=== PATIENT | male | born 1990 | race Caucasian/White ===

== ENCOUNTER 2017-11-30 21:25 | Emergency (ER) | payer MEDICAID ==
[~2017-11-30 21:25] MED LIST: METH4TAB81 PO; NO HOME MEDS; OMEP40CA37 PO; PHEN30SP9 PO
== END 2017-12-01 00:51 | disposition left against medical advice (07) ==
LOC: ER 21:28
DX: M25.519 Pain in unspecified shoulder (principal); Z53.21 Procedure and treatment not carried out due to patient leaving prior to being seen by health care provider

== ENCOUNTER 2017-12-01 01:11 | Emergency (ER) | payer MEDICAID ==
[~2017-12-01] VITALS: Ht 175.3 cm; Wt 86.5 kg
[2017-12-01 01:21] VITALS: BP 139/81
== END 2017-12-01 02:17 | disposition home or self-care (01) ==
LOC: ER 01:12
DX: M25.512 Pain in left shoulder (principal); G89.29 Other chronic pain; Z79.899 Other long term (current) drug therapy
CPT/HCPCS: 99281

== ENCOUNTER 2018-04-02 20:56 | Emergency (ER) | payer MEDICAID ==
[~2018-04-02] VITALS: Ht 175.3 cm; Wt 85.0 kg
[2018-04-02 21:03] VITALS: BP 148/89
== END 2018-04-02 22:00 | disposition home or self-care (01) ==
LOC: ER 20:57
DX: R42 Dizziness and giddiness (principal); G89.29 Other chronic pain; F17.200 Nicotine dependence, unspecified, uncomplicated; Z98.890 Other specified postprocedural states; Z79.899 Other long term (current) drug therapy
CPT/HCPCS: 99284

== ENCOUNTER 2018-04-22 01:37 | Emergency (ER) | payer MEDICAID ==
[~2018-04-22] VITALS: Ht 175.3 cm; Wt 75.2 kg
[2018-04-22] MEDS ORDERED: iohexol 350MG/ML 100ml bottle IV ONE (02:13)
[2018-04-22 03:44] VITALS: BP 127/73
== END 2018-04-22 03:58 | disposition home or self-care (01) ==
LOC: ER 01:37
DX: M54.2 Cervicalgia (principal); G89.29 Other chronic pain; Z98.890 Other specified postprocedural states; Z79.899 Other long term (current) drug therapy; Y04.0XXA Assault by unarmed brawl or fight, initial encounter; Y93.89 Activity, other specified; Y92.89 Other specified places as the place of occurrence of the external cause; Y99.9 Unspecified external cause status
CPT/HCPCS: 70491; 99284; J7030; Q9967

== ENCOUNTER 2021-07-09 15:54 | Emergency (ER) | payer MEDICAID ==
[~2021-07-09] VITALS: Ht 175.3 cm; Wt 83.2 kg
[~2021-07-09 15:54] MED LIST changes: +OMEP40CA21 PO; -OMEP40CA37 PO
[2021-07-09 16:12] VITALS: BP 114/72
== END 2021-07-09 21:30 | disposition left against medical advice (07) ==
LOC: ER 15:55
DX: R07.89 Other chest pain (principal); G89.29 Other chronic pain; Z79.899 Other long term (current) drug therapy
CPT/HCPCS: 71045; 99283

== ENCOUNTER 2022-03-11 09:35 | Emergency (ER) | payer MEDICAID ==
[~2022-03-11] VITALS: Ht 175.3 cm; Wt 95.0 kg
[~2022-03-11 09:35] MED LIST changes: +IBUP-1986 PO; +PSEU120T55 PO
[2022-03-11 09:47] VITALS: BP 120/71
[2022-03-11 11:05] LABS: BASOPHILS % (AUTO) 0.4 % (0-1); EOSINOPHILS # (AUTO) 0.2 X10'3 (0-0.9); EOSINOPHILS % (AUTO) 3.1 % (0-6); HEMOGLOBIN 15.4 g/dl (14.0-17.9); LYMPHOCYTES # (AUTO) 1.8 X10'3 (1.1-4.8); LYMPHOCYTES % (AUTO) 33.5 % (21-51); MEAN CORPUSCULAR HEMOGLOBIN 31.8 PG (27.0-31.0); MEAN CORPUSCULAR HGB CONC 34.2 g/dL (33.0-36.5); MEAN PLATELET VOLUME 8.2 FL (7.4-10.4); MONOCYTES # (AUTO) 0.5 X10'3 (0-0.9); MONOCYTES % (AUTO) 9.1 % (2-12); NEUTROPHILS # (AUTO) 2.8 X10'3 (1.8-7.7); NEUTROPHILS % (AUTO) 53.9 % (42-75); PLATELET COUNT 264 X10'3 (140-440); RED BLOOD COUNT 4.84 X10'6 (4.70-6.10); RED CELL DISTRIBUTION WIDTH 13.5 % (11.5-14.5); WHITE BLOOD COUNT 5.2 X10'3 (4.5-11.0)
[2022-03-11 11:22] LABS: ALANINE AMINOTRANSFERASE 28 U/L (12-78); ALBUMIN/GLOBULIN RATIO 1.1 (1.1-1.5); ALKALINE PHOSPHATASE 65 IU/L (46-116); AMYLASE 47 U/L (25-115); ANION GAP 8 (8-16); ASPARTATE AMINO TRANSFERASE 23 U/L (10-37); BILIRUBIN,TOTAL 0.3 MG/DL (0.1-1.0); BLOOD UREA NITROGEN 12 MG/DL (7-18); BUN/CREATININE RATIO 16.4 (5.4-32.0); CALCIUM 8.7 MG/DL (8.5-10.1); CHLORIDE 105 MMOL/L (99-107); CREATININE 0.73 MG/DL (0.60-1.10); GLUCOSE 92 MG/DL (70-104); LIPASE 91 U/L (73-393); POTASSIUM 4.4 MMOL/L (3.5-5.1); SODIUM 139 MMOL/L (135-145); TOTAL CARBON DIOXIDE 26.4 MMOL/L (24-32); TOTAL PROTEIN 7.6 G/DL (6.4-8.2); eGFR > 90 ML/MIN
--- NOTE | 2022-03-11 12:24 | NUR ---
Attempted to call patient back to a room, Patient was not in lobby x3 called. Called patient at listed number at which he states that "I got tired of waiting". I notified patient that if he still needed care that he could come in and be seen at any point. Patient verbalized understanding.
== END 2022-03-11 12:25 | disposition left against medical advice (07) ==
LOC: ER 09:35
DX: K92.0 Hematemesis (principal); Z53.21 Procedure and treatment not carried out due to patient leaving prior to being seen by health care provider
CPT/HCPCS: 36415; 80053; 82150; 83690; 85025

== ENCOUNTER 2022-06-14 04:23 | Emergency (ER) | payer MEDICAID ==
[~2022-06-14] VITALS: Ht 175.3 cm; Wt 81.8 kg
[2022-06-14] MEDS ORDERED: ketamine 50 mg/ml 10ml vial IM ONE (05:40)
[2022-06-14] MEDS ORDERED: naproxen 500mg tablet PO ONE (05:40)
[2022-06-14] MEDS ORDERED: HYDROcodone/acetaminophen 10/325mg tab PO ONE (05:40)
[2022-06-14] MEDS ORDERED: LIDOcaine 1% w/EPI 1:100,000 30ml vial (MDV) IJ ONE (06:30)
[2022-06-14] MEDS ORDERED: HYDR-3965 PO ×3 (08:05→08:17)
[2022-06-14 08:41] VITALS: BP 131/80
== END 2022-06-14 08:44 | disposition home or self-care (01) ==
LOC: ER 04:23
DX: S62.396A Other fracture of fifth metacarpal bone, right hand, initial encounter for closed fracture (principal); S63.064A Dislocation of metacarpal (bone), proximal end of right hand, initial encounter; G89.29 Other chronic pain; F17.200 Nicotine dependence, unspecified, uncomplicated; Z98.890 Other specified postprocedural states; Z79.899 Other long term (current) drug therapy; W22.8XXA Striking against or struck by other objects, initial encounter; Y93.89 Activity, other specified; Y92.89 Other specified places as the place of occurrence of the external cause; Y99.8 Other external cause status
CPT/HCPCS: 26605; 73110; 73130; 99284; A6449

== ENCOUNTER 2022-06-22 10:50 | Day surgery (SDC) | payer MEDICAID ==
[2022-06-18 15:10] LABS: BASOPHILS % (AUTO) 0.5 % (0-1); EOSINOPHILS # (AUTO) 0.1 X10'3 (0-0.9); LYMPHOCYTES # (AUTO) 1.8 X10'3 (1.1-4.8); LYMPHOCYTES % (AUTO) 28.6 % (21-51); MEAN CORPUSCULAR HEMOGLOBIN 31.5 PG (27.0-31.0); MEAN CORPUSCULAR HGB CONC 34.3 g/dL (33.0-36.5); MEAN PLATELET VOLUME 7.9 FL (7.4-10.4); MONOCYTES # (AUTO) 0.5 X10'3 (0-0.9); MONOCYTES % (AUTO) 7.9 % (2-12); NEUTROPHILS # (AUTO) 3.9 X10'3 (1.8-7.7); PRE OP HEMATOCRIT 43.5 % (42.0-52.0); PRE OP HEMOGLOBIN 14.9 g/dL (14.0-17.9); PRE OP PLATELET COUNT 279 X10'3 (140-440); RED BLOOD COUNT 4.73 X10'6 (4.70-6.10); RED CELL DISTRIBUTION WIDTH 12.6 % (11.5-14.5)
[2022-06-18 15:18] LABS: ALBUMIN 3.8 G/DL (3.4-5.0); ALBUMIN/GLOBULIN RATIO 1.2 (1.1-1.5); ALKALINE PHOSPHATASE 73 IU/L (46-116); BLOOD UREA NITROGEN 15 MG/DL (7-18); BUN/CREATININE RATIO 16.9 (5.4-32.0); CALCIUM 9.1 MG/DL (8.5-10.1); CHLORIDE 105 MMOL/L (99-107); CREATININE 0.89 MG/DL (0.60-1.10); PRE OP ALT 25 U/L (30-65); PRE OP ANION GAP 7 (8-16); PRE OP AST 15 U/L (10-37); PRE OP BILIRUB, TOTAL 0.4 MG/DL (0.0-1.0); PRE OP GLUCOSE 126 MG/DL (70-104); PRE OP POTASSIUM 3.9 MMOL/L (3.4-5.1); PRE OP SODIUM 139 MMOL/L (135-145); TOTAL CARBON DIOXIDE 26.7 MMOL/L (24-32); eGFR > 90 ML/MIN
[~2022-06-22] VITALS: Ht 175.3 cm; Wt 90.5 kg
[~2022-06-22 10:50] MED LIST changes: +BUPIVAcaine/PF 2.5 mg/ml (0.25%) 30ml vial ONE; +HYDR-3964 PO; -IBUP-1986 PO; -METH4TAB81 PO; -NO HOME MEDS; -OMEP40CA21 PO; -PHEN30SP9 PO; -PSEU120T55 PO; +ceFAZolin inj. 2,000 MG in dextrose 5%-water 100 ML IV ONE; +famotidine 20mg tablet PO ONE; +ringers solution, lacted 1,000 ML IV SCH
[2022-06-22 11:00] VITALS: BP 115/53
[2022-06-22] MEDS ORDERED: proCHLORperazine 10 MG/2 ml inj IV PRN (11:45)
[2022-06-22] MEDS ORDERED: morphine 2 MG/ML inj. syringe IV PRN (11:45)
[2022-06-22] MEDS ORDERED: morphine 4 MG/ML inj SYRINge IV PRN (11:45)
[2022-06-22] MEDS ORDERED: ringers solution, lacted 1,000 ML IV SCH (11:45)
[2022-06-22] MEDS ORDERED: meperidine/PF 25mg/ml syringe IV PRN ×3 (11:45)
[2022-06-22] MEDS ORDERED: ondansetron/PF 4mg/2ml inj IV PRN (11:45)
[2022-06-22] MEDS ORDERED: sevoflurane 250ml liquid IH ONE (12:18)
[2022-06-22] MEDS ORDERED: fentaNYL/PF 50MCG/1 ML 2ML syringe ONE (12:19)
[2022-06-22] MEDS ORDERED: propofol inj 20 ML IV ONE (12:19)
[2022-06-22] MEDS ORDERED: midazolam 1 mg/ML 2ml injection ONE (12:19)
[2022-06-22 13:05] VITALS: BP 110/70
--- NOTE | 2022-06-22 13:05 | NUR ---
PT ARRIVED TO RR VIA GURNEY, PT WITH LMA STILL IN PLACE, VSS, RIGHT HAND WRAPPED-FINGERS PINK, WARM, NO SN/SX OF PAIN, DRSG-CDI
[2022-06-22 13:10] VITALS: BP 113/72
[2022-06-22 13:20] VITALS: BP 115/68
[2022-06-22 13:30] VITALS: BP 118/74
--- NOTE | 2022-06-22 13:35 | NUR ---
PT EAGER TO LEAVE, GETTING DRESSED, GIVEN PAIN PILL-HAND 3/10 ACHE, DRSG-CDI, FINGERS PINK WARM, ABLE TO MOVE, VSS, PIV'S D/CD-CANULA INTACT, D/C INSTRUCTIONS GIVEN TO PT-ALL QUESTIONS ANSWERED, PT TAKEN WITH ALL BELONGINGS VIA W/C TO VEHICLE FOR TRANSPORT HOME.
[2022-06-22] MEDS ORDERED: HYDROcodone/acetaminophen 5mg/325mg tablet PO ONE (13:45)
== END 2022-06-22 13:35 | disposition home or self-care (01) ==
LOC: PAS 10:50
PROVIDERS: ATTEND Orthopaedic Surgery Hand Surgery
DX: S62.141A Displaced fracture of body of hamate [unciform] bone, right wrist, initial encounter for closed fracture (principal); F17.210 Nicotine dependence, cigarettes, uncomplicated; X58.XXXA Exposure to other specified factors, initial encounter; Y93.89 Activity, other specified; Y92.89 Other specified places as the place of occurrence of the external cause; Y99.8 Other external cause status; Z79.899 Other long term (current) drug therapy; Z98.890 Other specified postprocedural states
CPT/HCPCS: 25635; 36415; 80053; 82948; 85025; A6222; C1713; J0690; J2250; J2270; J2704; J3010; J3490; J7030; J7060; J7120; Z7506; Z7512; A4215; A4618; A6449; A7000

== ENCOUNTER 2022-12-07 08:32 | Emergency (ER) | payer MEDICAID ==
[~2022-12-07] VITALS: Ht 175.3 cm; Wt 90.9 kg
[~2022-12-07 08:32] MED LIST changes: -BUPIVAcaine/PF 2.5 mg/ml (0.25%) 30ml vial ONE; -ceFAZolin inj. 2,000 MG in dextrose 5%-water 100 ML IV ONE; -famotidine 20mg tablet PO ONE; -ringers solution, lacted 1,000 ML IV SCH
[2022-12-07 08:53] VITALS: BP 133/81
== END 2022-12-07 14:38 | disposition left against medical advice (07) ==
LOC: ER 08:33
DX: R50.9 Fever, unspecified (principal); Z53.21 Procedure and treatment not carried out due to patient leaving prior to being seen by health care provider
CPT/HCPCS: 99281

== ENCOUNTER 2022-12-18 22:09 | Emergency (ER) | payer MEDICAID ==
[~2022-12-18] VITALS: Ht 175.3 cm; Wt 92.8 kg
[2022-12-18 22:18] VITALS: BP 131/73
--- NOTE | 2022-12-18 23:38 | NUR ---
registration states that the pt has left the lobby
== END 2022-12-19 01:48 | disposition left against medical advice (07) ==
LOC: ER 22:10
DX: F29 Unspecified psychosis not due to a substance or known physiological condition (principal); Z53.21 Procedure and treatment not carried out due to patient leaving prior to being seen by health care provider
CPT/HCPCS: 99281

== ENCOUNTER 2023-04-05 01:49 | Emergency (ER) | payer MEDICAID ==
[~2023-04-05] VITALS: Ht 175.3 cm; Wt 90.9 kg
[2023-04-05 02:13] VITALS: BP 115/82; PULSE 85; RESP 16; TEMP 97.8; O2SAT 98
== END 2023-04-05 05:22 | disposition left against medical advice (07) ==
LOC: ER 01:49
DX: S86.802A Unspecified injury of other muscle(s) and tendon(s) at lower leg level, left leg, initial encounter (principal); Z53.21 Procedure and treatment not carried out due to patient leaving prior to being seen by health care provider; X58.XXXA Exposure to other specified factors, initial encounter; Y93.89 Activity, other specified; Y92.89 Other specified places as the place of occurrence of the external cause; Y99.8 Other external cause status
CPT/HCPCS: 99281

== ENCOUNTER 2023-08-30 19:15 | Emergency (ER) | payer SELFPAY ==
[~2023-08-30] VITALS: Ht 175.3 cm; Wt 95.7 kg
[2023-08-30 19:33] VITALS: BP 150/63; PULSE 87; RESP 16; TEMP 97.5; O2SAT 99
[2023-08-30] MEDS ORDERED: ketorolac trometh inj. 60 MG/2 ML VIAL IM ONE (20:15)
== END 2023-08-30 20:34 | disposition home or self-care (01) ==
LOC: ER 19:17
DX: G43.909 Migraine, unspecified, not intractable, without status migrainosus (principal); Z79.1 Long term (current) use of non-steroidal anti-inflammatories (NSAID); Z79.899 Other long term (current) drug therapy
CPT/HCPCS: 96372; 99283; J1885

== ENCOUNTER 2023-09-20 13:20 | Emergency (ER) | payer MEDICAID ==
[~2023-09-20] VITALS: Ht 175.3 cm; Wt 93.2 kg
[2023-09-20 13:56] VITALS: BP 133/64; PULSE 78; RESP 18; TEMP 97.9; O2SAT 97
[2023-09-20] MEDS ORDERED: LEVO-65 PO (14:05)
== END 2023-09-20 14:27 | disposition home or self-care (01) ==
LOC: ER 13:21
DX: H66.91 Otitis media, unspecified, right ear (principal); H72.91 Unspecified perforation of tympanic membrane, right ear; F17.200 Nicotine dependence, unspecified, uncomplicated
CPT/HCPCS: 99283

== ENCOUNTER 2023-10-24 19:39 | Emergency (ER) | payer MEDICAID ==
[~2023-10-24] VITALS: Ht 175.3 cm; Wt 81.8 kg
[2023-10-24 20:20] LABS: BASOPHILS % (AUTO) 0.2 % (0-1); EOSINOPHILS # (AUTO) 0.1 X10'3 (0-0.9); EOSINOPHILS % (AUTO) 1.2 % (0-6); HEMATOCRIT 45.1 % (42.0-52.0); HEMOGLOBIN 15.1 g/dl (14.0-17.9); LYMPHOCYTES # (AUTO) 1.4 X10'3 (1.1-4.8); LYMPHOCYTES % (AUTO) 22.4 % (21-51); MEAN CORPUSCULAR HEMOGLOBIN 30.2 PG (27.0-31.0); MEAN CORPUSCULAR HGB CONC 33.5 g/dL (33.0-36.5); MEAN CORPUSCULAR VOLUME 90.1 FL (78-98); MEAN PLATELET VOLUME 8.2 FL (7.4-10.4); MONOCYTES # (AUTO) 0.4 X10'3 (0-0.9); MONOCYTES % (AUTO) 6.8 % (2-12); NEUTROPHILS # (AUTO) 4.5 X10'3 (1.8-7.7); NEUTROPHILS % (AUTO) 69.4 % (42-75); PLATELET COUNT 271 X10'3 (140-440); RED CELL DISTRIBUTION WIDTH 13.5 % (11.5-14.5); WHITE BLOOD COUNT 6.4 X10'3 (4.5-11.0)
[2023-10-24 20:27] LABS: ALANINE AMINOTRANSFERASE 32 U/L (12-78); ALBUMIN 4.2 G/DL (3.4-5.0); ALBUMIN/GLOBULIN RATIO 1.2 (1.1-1.5); ALKALINE PHOSPHATASE 87 IU/L (46-116); ANION GAP 13 (8-16); ASPARTATE AMINO TRANSFERASE 20 U/L (10-37); BILIRUBIN,TOTAL 0.6 MG/DL (0.1-1.0); BLOOD UREA NITROGEN 7 MG/DL (7-18); BUN/CREATININE RATIO 6.9 (10.0-20.0); CALCIUM 8.9 MG/DL (8.5-10.1); CHLORIDE 102 MMOL/L (99-107); CREATININE 1.02 MG/DL (0.60-1.10); GLUCOSE 93 MG/DL (70-104); POTASSIUM 3.7 MMOL/L (3.5-5.1); SODIUM 143 MMOL/L (135-145); TOTAL PROTEIN 7.7 G/DL (6.4-8.2); eCRCL 105 ML/MIN; eGFR 85 ML/MIN
[2023-10-24 20:33] LABS: BILIRUBIN,URINE MODERATE (Neg); CLARITY,URINE TURBID (Clear); COLOR,URINE YELLOW (Yellow); GLUCOSE, URINE NEGATIVE (Neg); KETONES,URINE NEGATIVE (Neg); LEUKOCYTE ESTERASE ,URINE NEGATIVE (Neg); NITRITES, URINE NEGATIVE (Neg); OCCULT BLOOD,URINE NEGATIVE (Neg); PH,URINE 5.5 (4.8-8.0); PROTEIN,URINE NEGATIVE (Neg); UA COLLECTION TYPE CLN CATCH MIDSTREAM
[2023-10-24 20:36] LABS: ETHANOL < 10 MG/DL (<10); THYROID STIMULATING HORMONE 1.48 ulU/ml (0.34-4.50)
[2023-10-24 21:16] LABS: AMORPHOUS URATES 4+; BACTERIA,URINE NONE SEEN /HPF (Neg); MUCUS STRANDS NONE SEEN /LPF (Neg); RBC,URINE NONE SEEN /HPF (0-2); SQUAMOUS EPITHELIAL CELL,UR NONE SEEN /LPF (FEW); WBC,URINE NONE SEEN /HPF (0-4)
[2023-10-24] MEDS: haloperidol 5mg tablet PO ONE (21:22)
[2023-10-24] MEDS: diphenhydrAMINE 25mg capsule PO ONE (21:22)
[2023-10-24] MEDS: LORazepam 1 MG tablet PO ONE (21:22)
[2023-10-24 21:24] LABS: URINE AMPHETAMINE SCREEN POSITIVE (Neg); URINE BARBITUATE SCREEN NEGATIVE (Neg); URINE BENZODIAZEPINES SCREEN NEGATIVE (Neg); URINE CANNABINOID SCREEN NEGATIVE (Neg); URINE COCAINE SCREEN NEGATIVE (Neg); URINE METHADONE SCREEN NEGATIVE (Neg); URINE OPIATE SCREEN NEGATIVE (Neg); URINE PHENCYCLIDINE SCREEN NEGATIVE (Neg)
[2023-10-24] MEDS ORDERED: NO HOME MEDS (22:01)
[2023-10-24] MEDS: OLANZapine **IM** 10 mg inj. IM ONE (22:36)
[2023-10-24] MEDS: LORazepam 1 MG tablet PO STA (22:38)
[2023-10-24] MEDS: OLANZapine **IM** 10 mg inj. IM STA (22:38)
[2023-10-25 14:51] VITALS: BP 94/49; PULSE 75; RESP 14; TEMP 97.5; O2SAT 97
== END 2023-10-25 14:56 | disposition still patient (30) ==
LOC: ER 19:39
DX: F15.10 Other stimulant abuse, uncomplicated (principal); Z20.822 Contact with and (suspected) exposure to COVID-19; F32.A Depression, unspecified; F17.200 Nicotine dependence, unspecified, uncomplicated; Z79.899 Other long term (current) drug therapy
CPT/HCPCS: 36415; 80053; 80305; 80320; 81001; 84443; 85025; 87811; 96372; 99284; J3490; Q0163

== ENCOUNTER 2024-02-04 05:13 | Emergency (ER) | payer MEDICAID ==
[~2024-02-04] VITALS: Ht 175.3 cm; Wt 90.9 kg
[~2024-02-04 05:13] MED LIST changes: -HYDR-3964 PO; +NO HOME MEDS
[2024-02-04] MEDS: diazepam 5mg tablet PO ONE (06:38)
[2024-02-04] MEDS: olanzapine 10mg tablet PO ONE (06:38)
[2024-02-04 07:20] VITALS: BP 115/61; PULSE 98; RESP 20; TEMP 98.1; O2SAT 98
== END 2024-02-04 07:15 | disposition home or self-care (01) ==
LOC: ER 05:13
DX: F41.9 Anxiety disorder, unspecified (principal); F15.90 Other stimulant use, unspecified, uncomplicated
CPT/HCPCS: 99283

== ENCOUNTER 2024-02-09 00:16 | Emergency (ER) | payer MEDICAID ==
[~2024-02-09] VITALS: Ht 175.3 cm; Wt 91.8 kg
[2024-02-09 00:28] VITALS: BP 117/77; PULSE 93; RESP 18; TEMP 98.1; O2SAT 96
[2024-02-09] MEDS ORDERED: OLAN5TAB29 PO (03:11)
== END 2024-02-09 01:58 | disposition left against medical advice (07) ==
LOC: ER 00:17
DX: F99 Mental disorder, not otherwise specified (principal); Z53.21 Procedure and treatment not carried out due to patient leaving prior to being seen by health care provider

== ENCOUNTER 2024-02-09 02:23 | Emergency (ER) | payer MEDICAID ==
[~2024-02-09] VITALS: Ht 175.3 cm; Wt 91.8 kg
[2024-02-09] MEDS ORDERED: OLAN5TAB29 PO (03:11)
[2024-02-09] MEDS: olanzapine 10mg tablet PO ONE (03:20)
[2024-02-09] MEDS: OLANZapine 2.5MG tablet PO ONE (03:29)
[2024-02-09 03:32] VITALS: BP 122/82; PULSE 94; RESP 18; TEMP 98.4; O2SAT 98
== END 2024-02-09 03:33 | disposition home or self-care (01) ==
LOC: ER 02:24
DX: F99 Mental disorder, not otherwise specified (principal); G89.29 Other chronic pain; F32.A Depression, unspecified; F15.90 Other stimulant use, unspecified, uncomplicated
CPT/HCPCS: 99283

== ENCOUNTER 2024-02-09 19:05 | Emergency (ER) | payer MEDICAID ==
[~2024-02-09 19:05] MED LIST changes: +OLAN5TAB29 PO
== END 2024-02-09 20:11 | disposition left against medical advice (07) ==
LOC: ER 19:06
DX: Z04.6 Encounter for general psychiatric examination, requested by authority (principal); Z53.21 Procedure and treatment not carried out due to patient leaving prior to being seen by health care provider

== ENCOUNTER 2024-03-06 12:33 | Emergency (ER) | payer MEDICAID ==
[~2024-03-06] VITALS: Ht 175.3 cm; Wt 95.0 kg
[~2024-03-06 12:33] MED LIST changes: +AMOX-117 PO; +CARB15DR91 RIGHT EAR
[2024-03-06 12:34] VITALS: BP 138/80; PULSE 108; RESP 16; TEMP 98.2; O2SAT 98
[2024-03-06] MEDS ORDERED: HALO5TAB PO (14:04)
[2024-03-06] MEDS ORDERED: DIPH-735 PO (14:05)
[2024-03-06] MEDS: haloperidol 5mg tablet PO ONE (14:11)
== END 2024-03-06 14:15 | disposition home or self-care (01) ==
LOC: ER 12:34
DX: Z76.0 Encounter for issue of repeat prescription (principal); F32.A Depression, unspecified; F15.90 Other stimulant use, unspecified, uncomplicated; Z79.899 Other long term (current) drug therapy
CPT/HCPCS: 99283

== ENCOUNTER 2024-03-08 14:45 | Emergency (ER) | payer MEDICAID ==
[~2024-03-08] VITALS: Ht 175.3 cm; Wt 97.1 kg
[~2024-03-08 14:45] MED LIST changes: +DIPH-735 PO; +HALO5TAB PO
[2024-03-08 14:46] VITALS: BP 143/82; PULSE 101; RESP 16; TEMP 98; O2SAT 98
[2024-03-08 15:43] LABS: BILIRUBIN,URINE NEGATIVE (Neg); CLARITY,URINE CLEAR (Clear); COLOR,URINE YELLOW (Yellow); GLUCOSE, URINE NEGATIVE (Neg); KETONES,URINE NEGATIVE (Neg); LEUKOCYTE ESTERASE ,URINE NEGATIVE (Neg); NITRITES, URINE NEGATIVE (Neg); OCCULT BLOOD,URINE NEGATIVE (Neg); PROTEIN,URINE NEGATIVE (Neg); UROBILINOGEN,URINE 0.2 E.U/dL (0.2-1.0)
[2024-03-08 15:48] LABS: UA COLLECTION TYPE VOIDED
[2024-03-08 15:55] LABS: URINE AMPHETAMINE SCREEN NEGATIVE (Neg); URINE BARBITUATE SCREEN NEGATIVE (Neg); URINE BENZODIAZEPINES SCREEN NEGATIVE (Neg); URINE CANNABINOID SCREEN NEGATIVE (Neg); URINE COCAINE SCREEN NEGATIVE (Neg); URINE METHADONE SCREEN NEGATIVE (Neg); URINE OPIATE SCREEN NEGATIVE (Neg); URINE PHENCYCLIDINE SCREEN NEGATIVE (Neg)
[2024-03-08] MEDS ORDERED: HYDR-3686 PO (16:12)
[2024-03-08 16:13] LABS: BASOPHILS % (AUTO) 0.5 % (0-1); EOSINOPHILS # (AUTO) 0.2 X10'3 (0-0.9); EOSINOPHILS % (AUTO) 2.5 % (0-6); HEMATOCRIT 42.6 % (42.0-52.0); HEMOGLOBIN 14.3 g/dl (14.0-17.9); LYMPHOCYTES # (AUTO) 2.2 X10'3 (1.1-4.8); LYMPHOCYTES % (AUTO) 31.1 % (21-51); MEAN CORPUSCULAR HEMOGLOBIN 29.9 PG (27.0-31.0); MEAN CORPUSCULAR HGB CONC 33.6 g/dL (33.0-36.5); MEAN CORPUSCULAR VOLUME 88.9 FL (78-98); MEAN PLATELET VOLUME 8.3 FL (7.4-10.4); MONOCYTES # (AUTO) 0.5 X10'3 (0-0.9); MONOCYTES % (AUTO) 6.7 % (2-12); NEUTROPHILS # (AUTO) 4.1 X10'3 (1.8-7.7); NEUTROPHILS % (AUTO) 59.2 % (42-75); PLATELET COUNT 271 X10'3 (140-440); RED BLOOD COUNT 4.79 X10'6 (4.70-6.10)
[2024-03-08 16:26] LABS: ALBUMIN 3.8 G/DL (3.4-5.0); ANION GAP 9 (8-16); BLOOD UREA NITROGEN 10 MG/DL (7-18); BUN/CREATININE RATIO 10.8 (10.0-20.0); CALCIUM 8.8 MG/DL (8.5-10.1); CHLORIDE 102 MMOL/L (99-107); CREATININE 0.93 MG/DL (0.60-1.10); ETHANOL < 10 MG/DL (<10); SODIUM 139 MMOL/L (135-145); THYROID STIMULATING HORMONE 1.68 ulU/ml (0.34-4.50); TOTAL CARBON DIOXIDE 28.5 MMOL/L (24-32); eCRCL 115 ML/MIN; eGFR > 90 ML/MIN
[2024-03-08] MEDS: hydrOXYzine 25 MG tablet PO ONE (16:54)
[2024-03-08 16:58] LABS: GLUCOSE 121 MG/DL (70-104); POTASSIUM 4.2 MMOL/L (3.5-5.1)
== END 2024-03-08 17:00 | disposition home or self-care (01) ==
LOC: ER 14:45
DX: F41.9 Anxiety disorder, unspecified (principal); F99 Mental disorder, not otherwise specified; R45.1 Restlessness and agitation; G89.29 Other chronic pain; M54.9 Dorsalgia, unspecified; F32.A Depression, unspecified; F15.90 Other stimulant use, unspecified, uncomplicated; Z98.890 Other specified postprocedural states; Z79.899 Other long term (current) drug therapy
CPT/HCPCS: 36415; 80048; 80305; 80320; 81003; 84443; 85025; 99283; Q0177

== ENCOUNTER 2024-04-28 23:47 | Emergency (ER) | payer MEDICAID ==
[~2024-04-28] VITALS: Ht 180.3 cm; Wt 100.0 kg
[~2024-04-28 23:47] MED LIST changes: +HYDR-3686 PO
[2024-04-28 23:48] VITALS: TEMP 98.5
--- NOTE | 2024-04-28 23:54 | NUR ---
roddy arevalon sitting at this time
[2024-04-29] MEDS ORDERED: HALO5TAB PO (00:03)
[2024-04-29 00:21] LABS: ANION GAP 9 (8-16); BLOOD UREA NITROGEN 7 MG/DL (7-18); BUN/CREATININE RATIO 8.9 (10.0-20.0); CALCIUM 8.7 MG/DL (8.5-10.1); CHLORIDE 106 MMOL/L (99-107); CREATININE 0.79 MG/DL (0.60-1.10); ETHANOL < 10 MG/DL (<10); GLUCOSE 93 MG/DL (70-104); POTASSIUM 3.6 MMOL/L (3.5-5.1); SODIUM 142 MMOL/L (135-145); TOTAL CARBON DIOXIDE 26.8 MMOL/L (24-32); eCRCL 143 ML/MIN; eGFR > 90 ML/MIN
[2024-04-29 00:25] LABS: ALBUMIN 3.9 G/DL (3.4-5.0)
--- NOTE | 2024-04-29 00:30 | NUR ---
Patient arrived by Paramedics. He is well oriented, he looks disheveled. The patient tells this rewriter he felt S/I today, he denies H/I. Patient speaks in a quiet voice. Eye contact is indirect. The patient relays a history of one suicide attempt where he attempted to self strangle using a rope. He fell asleep instead. The patient only tied the rope around his neck. The patient states he had thoughts of suicide tonight, he had no plan. The patient presents as paranoid. No obvious psychosis noted by this rewriter. Patient has a history of depression and is schizoeffective. At one point post arrival the patient attempted to walk out the door. Security arrived and patient became cooperative.
[2024-04-29 00:33] LABS: BASOPHILS # (AUTO) 0.1 X10'3 (0-0.2); BASOPHILS % (AUTO) 0.8 % (0-1); EOSINOPHILS # (AUTO) 0.2 X10'3 (0-0.9); HEMATOCRIT 41.4 % (42.0-52.0); HEMOGLOBIN 14.3 g/dl (14.0-17.9); LYMPHOCYTES # (AUTO) 2.6 X10'3 (1.1-4.8); MEAN CORPUSCULAR HEMOGLOBIN 30.9 PG (27.0-31.0); MEAN CORPUSCULAR HGB CONC 34.6 g/dL (33.0-36.5); MEAN CORPUSCULAR VOLUME 89.3 FL (78-98); MEAN PLATELET VOLUME 8.3 FL (7.4-10.4); MONOCYTES # (AUTO) 0.5 X10'3 (0-0.9); MONOCYTES % (AUTO) 7.2 % (2-12); NEUTROPHILS # (AUTO) 3.4 X10'3 (1.8-7.7); PLATELET COUNT 240 X10'3 (140-440); RED BLOOD COUNT 4.64 X10'6 (4.70-6.10); RED CELL DISTRIBUTION WIDTH 13.9 % (11.5-14.5); WHITE BLOOD COUNT 6.8 X10'3 (4.5-11.0)
[2024-04-29 00:57] LABS: URINE AMPHETAMINE SCREEN NEGATIVE (Neg); URINE BARBITUATE SCREEN NEGATIVE (Neg); URINE BENZODIAZEPINES SCREEN NEGATIVE (Neg); URINE CANNABINOID SCREEN NEGATIVE (Neg); URINE COCAINE SCREEN NEGATIVE (Neg); URINE METHADONE SCREEN NEGATIVE (Neg); URINE OPIATE SCREEN NEGATIVE (Neg); URINE PHENCYCLIDINE SCREEN NEGATIVE (Neg)
[2024-04-29] MEDS ORDERED: TRAZ-251 PO (01:23)
[2024-04-29] MEDS ORDERED: LUMA42CA PO ×2 (01:31→10:26)
--- NOTE | 2024-04-29 01:41 | NUR ---
Patient sleeping quietly. No distress.
--- NOTE | 2024-04-29 03:14 | NUR ---
Patient continues to sleep in a supine position. No distress.
--- NOTE | 2024-04-29 04:12 | NUR ---
Patient continues to sleep well. Low Fowlers position in bed. In view from nurses station.
--- NOTE | 2024-04-29 05:00 | NUR ---
Patient sleeps. No distress, regular resp.
[2024-04-29 05:25] LABS: BILIRUBIN,URINE NEGATIVE (Neg); CLARITY,URINE CLEAR (Clear); COLOR,URINE YELLOW (Yellow); GLUCOSE, URINE NEGATIVE (Neg); KETONES,URINE NEGATIVE (Neg); LEUKOCYTE ESTERASE ,URINE NEGATIVE (Neg); NITRITES, URINE NEGATIVE (Neg); OCCULT BLOOD,URINE NEGATIVE (Neg); PROTEIN,URINE NEGATIVE (Neg); UROBILINOGEN,URINE 0.2 E.U/dL (0.2-1.0)
[2024-04-29 05:26] LABS: THYROID STIMULATING HORMONE 3.29 ulU/ml (0.34-4.50)
[2024-04-29 05:35] LABS: UA COLLECTION TYPE CLN CATCH MIDSTREAM
--- NOTE | 2024-04-29 06:07 | NUR ---
Packet sent to [facility].
--- NOTE | 2024-04-29 06:37 | NUR ---
REPORT FROM CIRO QUIROZ. PT IS SLEEPING AT THIS TIME, RESPIRATIONS ARE EVEN AND UNLABORED NO NEEDS AT THIS TIME
[2024-04-29] MEDS ORDERED: traZODone 50mg tablet PO PRN (06:45)
[2024-04-29] MEDS ORDERED: haloperidol 5mg tablet PO PRN (06:45)
[2024-04-29] MEDS: LUMATEPERONE TOSYLATE 42 MG PO SCH (08:00)
--- NOTE | 2024-04-29 08:04 | NUR ---
patient given breakfast tray. no other requests at this time.
--- NOTE | 2024-04-29 08:52 | NUR ---
MOTHER LIDA CALLED WANTING TO SPEAK TO PATIENT. PATIENT WAS GIVEN A PHONE
--- NOTE | 2024-04-29 10:01 | NUR ---
PATIENT RESTING AT THIS TIME. EQUAL RISE AND FALL OF CHEST. RESPIRATIONS UNLABORED. NO REQUESTS AT THIS TIME
[2024-04-29] MEDS ORDERED: RISP3TAB77 PO ×2 (10:26)
[2024-04-29] MEDS ORDERED: GUAN1TAB28 PO (10:26)
--- NOTE | 2024-04-29 10:28 | NUR ---
Patients belongings returned to patient.
[2024-04-29 10:34] VITALS: BP 120/76; PULSE 64; RESP 16; O2SAT 98
== END 2024-04-29 10:37 | disposition home or self-care (01) ==
LOC: ER 23:48
DX: R45.851 Suicidal ideations (principal); Z20.822 Contact with and (suspected) exposure to COVID-19; G89.29 Other chronic pain; F32.A Depression, unspecified; F20.9 Schizophrenia, unspecified; F15.90 Other stimulant use, unspecified, uncomplicated; Z79.899 Other long term (current) drug therapy; Z91.51 Personal history of suicidal behavior
CPT/HCPCS: 36415; 80048; 80305; 80320; 81003; 84443; 85025; 87811; 99285

== ENCOUNTER 2024-05-13 10:25 | Emergency (ER) | payer MEDICAID ==
[~2024-05-13] VITALS: Ht 175.3 cm; Wt 94.0 kg
[~2024-05-13 10:25] MED LIST changes: -AMOX-117 PO; -CARB15DR91 RIGHT EAR; -DIPH-735 PO; +GUAN1TAB28 PO; -HYDR-3686 PO; +LUMA42CA PO; -NO HOME MEDS; -OLAN5TAB29 PO; +RISP3TAB77 PO; +TRAZ-251 PO
[2024-05-13 11:10] LABS: BILIRUBIN,URINE NEGATIVE (Neg); CLARITY,URINE CLEAR (Clear); COLOR,URINE YELLOW (Yellow); GLUCOSE, URINE NEGATIVE (Neg); KETONES,URINE NEGATIVE (Neg); LEUKOCYTE ESTERASE ,URINE NEGATIVE (Neg); NITRITES, URINE NEGATIVE (Neg); OCCULT BLOOD,URINE NEGATIVE (Neg); PH,URINE 5.5 (4.8-8.0); PROTEIN,URINE NEGATIVE (Neg); UROBILINOGEN,URINE 0.2 E.U/dL (0.2-1.0)
[2024-05-13 11:28] LABS: URINE AMPHETAMINE SCREEN NEGATIVE (Neg); URINE BARBITUATE SCREEN NEGATIVE (Neg); URINE BENZODIAZEPINES SCREEN NEGATIVE (Neg); URINE CANNABINOID SCREEN NEGATIVE (Neg); URINE COCAINE SCREEN NEGATIVE (Neg); URINE METHADONE SCREEN NEGATIVE (Neg); URINE OPIATE SCREEN NEGATIVE (Neg); URINE PHENCYCLIDINE SCREEN NEGATIVE (Neg)
[2024-05-13 11:33] LABS: BASOPHILS % (AUTO) 0.3 % (0-1); EOSINOPHILS % (AUTO) 0.5 % (0-6); HEMATOCRIT 49.6 % (42.0-52.0); HEMOGLOBIN 16.7 g/dl (14.0-17.9); LYMPHOCYTES # (AUTO) 1.1 X10'3 (1.1-4.8); LYMPHOCYTES % (AUTO) 14.4 % (21-51); MEAN CORPUSCULAR HEMOGLOBIN 30.4 PG (27.0-31.0); MEAN CORPUSCULAR HGB CONC 33.7 g/dL (33.0-36.5); MEAN PLATELET VOLUME 8.4 FL (7.4-10.4); MONOCYTES # (AUTO) 0.5 X10'3 (0-0.9); MONOCYTES % (AUTO) 5.8 % (2-12); NEUTROPHILS # (AUTO) 6.2 X10'3 (1.8-7.7); PLATELET COUNT 297 X10'3 (140-440); RED BLOOD COUNT 5.51 X10'6 (4.70-6.10); RED CELL DISTRIBUTION WIDTH 14.1 % (11.5-14.5); WHITE BLOOD COUNT 7.8 X10'3 (4.5-11.0)
[2024-05-13 11:43] LABS: UA COLLECTION TYPE VOIDED
[2024-05-13 12:01] LABS: ALBUMIN 4.4 G/DL (3.4-5.0); ANION GAP 9 (8-16); BLOOD UREA NITROGEN 5 MG/DL (7-18); BUN/CREATININE RATIO 6.8 (10.0-20.0); CALCIUM 9.7 MG/DL (8.5-10.1); CHLORIDE 104 MMOL/L (99-107); CREATININE 0.73 MG/DL (0.60-1.10); ETHANOL < 10 MG/DL (<10); GLUCOSE 103 MG/DL (70-104); SODIUM 140 MMOL/L (135-145); THYROID STIMULATING HORMONE 1.44 ulU/ml (0.34-4.50); TOTAL CARBON DIOXIDE 26.9 MMOL/L (24-32); eCRCL 145 ML/MIN; eGFR > 90 ML/MIN
[2024-05-13] MEDS: haloperidol 5mg tablet PO ONE (12:14)
[2024-05-13] MEDS: LORazepam 1 MG tablet PO PRN (12:14)
[2024-05-13] MEDS ORDERED: RISP3TAB77 PO (15:11)
[2024-05-13] MEDS ORDERED: LUMA42CA PO (15:11)
[2024-05-13] MEDS ORDERED: GUAN1TAB28 PO (15:11)
[2024-05-13] MEDS: haloperidol 5mg tablet PO SCH (15:57)
[2024-05-13] MEDS: risperiDONE 0.5mg tablet PO SCH (21:16)
[2024-05-13] MEDS: traZODone 50mg tablet PO PRN (21:16)
[2024-05-14 05:42] VITALS: BP 127/92; PULSE 69; TEMP 98.2; O2SAT 100
[2024-05-14 06:48] VITALS: RESP 16
[2024-05-14] MEDS: Lumateperone Tosylate (Caplyta) 42MG CAP PO SCH (08:00)
[2024-05-14] MEDS: guanFACINE 1 mg tablet PO SCH (09:15)
== END 2024-05-14 12:30 ==
LOC: ER 10:26
DX: R45.851 Suicidal ideations (principal); Z20.822 Contact with and (suspected) exposure to COVID-19; F20.9 Schizophrenia, unspecified; F32.A Depression, unspecified; F15.90 Other stimulant use, unspecified, uncomplicated; Z79.899 Other long term (current) drug therapy
CPT/HCPCS: 36415; 80048; 80305; 80320; 81003; 84443; 85025; 87811; 99285

== ENCOUNTER 2024-09-23 10:49 | Emergency (ER) | payer MEDICAID ==
[~2024-09-23] VITALS: Ht 175.3 cm; Wt 88.0 kg
[~2024-09-23 10:49] MED LIST changes: -HALO5TAB PO
[2024-09-23 11:44] LABS: BILIRUBIN,URINE SMALL (Neg); CLARITY,URINE CLEAR (Clear); COLOR,URINE YELLOW (Yellow); GLUCOSE, URINE NEGATIVE (Neg); KETONES,URINE 40 mg/dl (Neg); LEUKOCYTE ESTERASE ,URINE NEGATIVE (Neg); NITRITES, URINE NEGATIVE (Neg); OCCULT BLOOD,URINE NEGATIVE (Neg); PROTEIN,URINE NEGATIVE (Neg); UROBILINOGEN,URINE 0.2 E.U/dL (0.2-1.0)
[2024-09-23 11:52] LABS: UA COLLECTION TYPE CLN CATCH MIDSTREAM
[2024-09-23] MEDS ORDERED: METR-159 PO (12:01)
[2024-09-23 12:08] VITALS: BP 135/76; PULSE 62; RESP 16; TEMP 98; O2SAT 99
== END 2024-09-23 12:10 | disposition home or self-care (01) ==
LOC: ER 10:49
DX: R30.9 Painful micturition, unspecified (principal); R39.198 Other difficulties with micturition; F15.90 Other stimulant use, unspecified, uncomplicated; F32.A Depression, unspecified; G89.29 Other chronic pain; Z98.890 Other specified postprocedural states; Z79.899 Other long term (current) drug therapy
CPT/HCPCS: 36415; 81003; 87491; 99283